=== PATIENT | female | born 1990 | race Caucasian/White ===

== ENCOUNTER → 2025-05-10 | Emergency (ER) | payer OTHER ==
[~2025-05-10] VITALS: Ht 167.6 cm; Wt 56.7 kg
[~2025-05-10] MED LIST: ACETAMINOPHEN 500 MG GEL..CAP PO ONE; ADDERALL 20 MG20 MG PO; BUTALB/ACETAMINOPHEN/CAFFEINE 1 TAB TABLET PO ONE; DIAZEPAM10 MG PO; HORIZANT600 MG PO; LAMICTAL200 MG PO; LATUDA80 MG PO; NEXPLANON68 MG SQ; TRAZODONE HCL150 MG PO
== END | disposition home or self-care (01) ==
LOC: ER 16:58
DX: S09.8XXA Other specified injuries of head, initial encounter (principal); W18.39XA Other fall on same level, initial encounter; Y93.F1 Activity, caregiving, bathing; Y92.012 Bathroom of single-family (private) house as the place of occurrence of the external cause; Z88.2 Allergy status to sulfonamides; Z88.0 Allergy status to penicillin; F31.89 Other bipolar disorder